=== PATIENT | male | born 1970 | race Caucasian/White ===

== ENCOUNTER 2016-06-20 12:48 | Inpatient (IN) | payer OTHER ==
[2016-06-20 14:05] VITALS: BMI 23.8
--- NOTE | 2016-06-20 15:58 | HP ---
COWS - Scale Resting Pulse: 1= [place] 81-100 Sweatin=Flushed/Facial Moisture Restless Observation: 3= Extraneous Movement Pupil Size: 2= Moderately Dilated Bone or Joint Aches: 2= Severe Diffuse Aches Runny Nose/ Eye Tearin= Runny Nose/Eyes GI Upset > 30mins: 3= Vomiting/Diarrhea Tremor Observation: 2= Slight Tremor Visible Yawning Observation: 2= >3x During Session Anxiety or Irritability: 2=Irritable/Anxious Goose Flesh Skin: 0=Smooth Skin COWS Score: 21 CIWA Score - CIWA Score Nausea/Vomitin Muscle Tremors: 3 Anxiety: 3 Agitation: 3 Paroxysmal Sweats: 2 Orientation: 0-Oriented Tacttile Disturbances: 2-Mild Itch/Numbness/Burn Auditory Disturbances: 2-Mild Harshness/Frighten Visual Disturbances: 2-Mild Sensitivity Headache: 2-Mild CIWA-Ar Total Score: 22 Admission ROS BHS - HPI Chief Complaint: i need help to stop using heroin and alcohol Allergies/Adverse Reactions: Allergies Allergy/AdvReac Type Severity Reaction Status Date / Time No Known Allergies Allergy Verified 06/20/16 14:20 History of Present Illness: this 45 years old male seeking help to stop using heroin,alcoho last detox 6 years ago at [facility] asthma anxiety,depression,adhd longest period sobriety 2 years Exam Limitations: No Limitations - Ebola screening Have you been sick,other than usual withdrawal symptoms: No - Review of Systems Constitutional: Chills, Diaphoresis, Loss of Appetite, Malaise, Night Sweats, Changes in sleep, Weakness EENT: reports: Tearing, Nose Congestion Respiratory: reports: No Symptoms reported Cardiac: reports: Palpitations GI: reports: Diarrhea, Nausea, Vomiting, Abdominal cramping : reports: No Symptoms Reported Musculoskeletal: reports: Back Pain, Joint Pain, Muscle Pain, Joint Stiffness Integumentary: reports: Dryness Neuro: reports: Headache, Tremors Endocrine: reports: No Symptoms Reported Hematology: reports: No Symptoms Reported Psychiatric: reports: No Sypmtoms Reported, Judgement Intact, Mood/Affect Appropiate, Orientated x3, Anxious (adhd), Depressed Patient History - Patient Medical History Hx Anemia: No Hx Asthma: Yes (on albuterol inhaler) Hx Chronic Obstructive Pulmonary Disease (COPD): No Hx Cancer: No Hx Cardiac Disorders: Yes (old mi at age of [age] years old admitted to [facility] ) Hx Congestive Heart Failure: No Hx Hypertension: No Hx Hypercholesterolemia: No Hx Pacemaker: No HX Cerebrovascular Accident: No Hx Seizures: No Hx Diabetes: No Hx Gastrointestinal Disorders: No Hx Genitourinary Disorders: No Hx Sexually Transmitted Disorders: No Hx Renal Disease (ESRD): No Hx Thyroid Disease: No Hx Human Immunodeficiency Virus (HIV): No (NEGATIVE last 2014) Hx Hepatitis C: No Hx Depression: Yes (anxiety) Hx Suicide Attempt: No Hx Bipolar Disorder: No Hx Schizophrenia: No Other Medical History: adhd,no suicidal,no homicidal - Patient Surgical History Past Surgical History: No - PPD History Previous Implant?: Yes Documented Results: Negative w/o proof Implanted On Prior R Admission?: Yes Date: 10/27/14 PPD to be Administered?: Yes - Smoking Cessation Smoking history: Current every day smoker Have you smoked in the past 12 months: Yes Aproximately how many cigarettes per day: 20 Hx Chewing Tobacco Use: No Initiated information on smoking cessation: Yes 'Breaking Loose' booklet given: 06/20/16 - Substance & Tx. History Hx Alcohol Use: Yes Hx Substance Use: Yes Substance Use Type: Heroin, Tranquilizers Hx Substance Use Treatment: Yes (pcp [facility]) - Substances Abused Alcohol Route: Oral Frequency: Daily Amount used: beer(4-10 cans-24 oz) Age of first use: 10 Date of Last Use: 06/20/16 Heroin Route: Inhalation Frequency: Daily Amount used: 3-5 bags Age of first use: 45 Date of Last Use: 06/18/16 PCP Route: Smoking Frequency: Daily Amount used: 2 BAGS Age of first use: 10 Date of Last Use: 06/18/16 Marijuana/Hashish Route: Inhalation Frequency: Daily Amount used: $40 Age of first use: 9 Date of Last Use: 06/18/16 Family Disease History - Family Disease History Family Disease History: Other: Father (alcohol,), Mother (dsa,depression ) Admission Physical Exam BHS - Vital Signs Vital Signs: Vital Signs - 24 hr 06/20/16 14:01 Temperature 96.8 F L Pulse Rate 96 H Respiratory 18 Rate Blood Pressure 118/80 - Physical General Appearance: Yes: Moderate Distress, Tremorous, Irritable, Sweating, Anxious HEENTM: Yes: Hearing grossly Normal, Normal ENT Inspection, ROVERTO, Pharynx Normal Respiratory: Yes: Lungs Clear, Normal Breath Sounds, No Respiratory Distress Neck: Yes: Within Normal Limits Breast: Yes: Within Normal Limits Cardiology: Yes: Within Normal Limits, Regular Rhythm, Regular Rate, S1, S2 Abdominal: Yes: Within Normal Limits, Normal Bowel Sounds, Non Tender, Flat, Soft Genitourinary: Yes: Within Normal Limits Back: Yes: Normal Inspection, Decreased Range of Motion, Muscle Spasm Musculoskeletal: Yes: full range of Motion, Back pain, Joint Stiffness, Muscle Pain Extremities: Yes: Within Normal Limits, Normal Range of Motion, Tremors 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, Fully Oriented, Alert, Motor Strength 5/5 Integumentary: Yes: Dry Lymphatic: Yes: Within Normal Limits - Diagnostic (1) Opioid dependence with withdrawal Current Visit: Yes Status: Acute (2) Alcohol dependence with uncomplicated withdrawal Current Visit: Yes Status: Acute (3) Anxiety and depression Current Visit: Yes Status: Acute (4) Insomnia Current Visit: Yes Status: Acute (5) Weight loss Current Visit: Yes Status: Acute Cleared for Admission [facility] - Detox or Rehab [facility] Level of Care: Medically Managed Detox Regimen/Protocol: Methadone/Librium [facility] Breath Alcohol Content Breath Alcohol Content: 0.065 Urine Drug Screen - Results Drug Screen Negative: No Urine Drug Screen Results: THC-Marijuana, FLY-Cocaine, OPI-Opiates, BZO- Benzodiazepines
[2016-06-20] MEDS ORDERED: chlordiazePOXIDE HCL 25 MG CAPSULE PO ONE (16:12)
[2016-06-20] MEDS ORDERED: MAGNESIUM HYDROX 2400MG/30ML ORAL SUSPENSION 30 ML CUP PO PRN (16:12)
[2016-06-20] MEDS ORDERED: MAG HYDROX/AL HYDROX/SIMETH 30 ML UNIT-DOSE CUP PO PRN (16:12)
[2016-06-20] MEDS ORDERED: MENTHOL/PHENOL 1 EACH UD MM PRN (16:12)
[2016-06-20] MEDS ORDERED: METHADONE HCL 10 MG TABLET (FOR DETOX USE ONLY) PO ONE ×2 (16:12→23:00)
[2016-06-20] MEDS ORDERED: P-EPHED 60MG/TRIPROLIDI 2.5MG TABLET PO PRN (16:12)
[2016-06-20] MEDS ORDERED: LOPERAMIDE HCL 2 MG CAPSULE PO PRN (16:12)
[2016-06-20] MEDS ORDERED: hydrOXYzine PAMOATE 25 MG CAPSULE (FP) PO PRN (16:12)
[2016-06-20] MEDS ORDERED: guaiFENesin/D-METHORPHAN HB 10 ML UNIT-DOSE CUPS PO PRN (16:12)
[2016-06-20] MEDS ORDERED: chlordiazePOXIDE HCL 25 MG CAPSULE PO PRN (16:12)
[2016-06-20] MEDS ORDERED: ACETAMINOPHEN 325 MG TABLET (FP) PO PRN (16:12)
[2016-06-20] MEDS ORDERED: MAGNESIUM CITRATE 300 ML BOTTLE PO PRN (16:12)
[2016-06-20] MEDS: NICOTINE 21 MG/24 HOURS TOPICAL PATCH TD SCH (18:03)
[2016-06-20] MEDS: cloNIDine HCL 0.1 MG TABLET PO SCH (22:12)
[2016-06-20] MEDS: chlordiazePOXIDE HCL 25 MG CAPSULE PO SCH (22:12)
[2016-06-20] MEDS: diphenhydrAMINE HCL 50 MG CAPSULE PO PRN (22:12)
[2016-06-20] MEDS: THIAMINE HCL 100 MG TABLET (FP) PO SCH (22:12)
[2016-06-20] MEDS: CYCLOBENZAPRINE HCL 10 MG TABLET (FP) PO PRN (22:12)
[2016-06-21] MEDS: chlordiazePOXIDE HCL 25 MG CAPSULE PO SCH ×4 (05:25→22:26)
[2016-06-21] MEDS: ALBUTEROL SO4 6.7 GM HFA INHALER IH PRN ×2 (05:30→18:25)
[2016-06-21] MEDS ORDERED: METHADONE HCL 10 MG TABLET (FOR DETOX USE ONLY) PO SCH (10:00)
[2016-06-21 10:01] LABS: MCH 32.5 pg (25.7-33.7); MCHC 32.5 g/dl (32.0-35.9); MEAN CELL VOLUME 99.8 fl (80-96); MEAN PLT VOLUME 8.9 fl (7.5-11.1); PLATELET COUNT 190 K/MM3 (134-434)
[2016-06-21] MEDS: FLUoxetine HCL 10 MG CAPSULE (FP) PO SCH (10:03)
[2016-06-21] MEDS: NICOTINE 21 MG/24 HOURS TOPICAL PATCH TD SCH (10:03)
[2016-06-21] MEDS: cloNIDine HCL 0.1 MG TABLET PO SCH ×2 (10:03→22:27)
[2016-06-21] MEDS: PRENATAL VITAMINS W/ FOLIC ACID TABLET (FP) PO SCH (10:03)
[2016-06-21 10:14] LABS: URINE APPEARANCE CLEAR; URINE BILIRUBIN NEGATIVE (NEGATIVE); URINE BLOOD NEGATIVE (NEGATIVE); URINE COLOR LTYELLOW; URINE GLUCOSE (UA) NEGATIVE (NEGATIVE); URINE KETONE NEGATIVE (NEGATIVE); URINE LEUK ESTERASE NEGATIVE (NEGATIVE); URINE NITRITE NEGATIVE (NEGATIVE); URINE PROTEIN NEGATIVE (NEGATIVE); URINE UROBILINOGEN NEGATIVE E.U./dl (0.2-1.0)
[2016-06-21 10:19] LABS: ALBUMIN 3.4 g/dl (3.4-5.0); ALK PHOS 73 U/L (45-117); ANION GAP 6 (8-16); BILIRUBIN,TOTAL 0.3 mg/dL (0.2-1.0); CALCIUM 8.5 mg/dL (8.5-10.1); CO2 32 mmol/L (21-32); COCKROFT - GAULT 86.71; GLUCOSE,RANDOM 78 mg/dL (74-106); SGOT/AST 75 U/L (15-37); SGPT/ALT 56 U/L (12-78); TOT PROT 6.3 g/dl (6.4-8.2)
--- NOTE | 2016-06-21 10:25 | PN ---
[facility] CIWA - CIWA Score Nausea/Vomitin Muscle Tremors: 2 Anxiety: 2 Agitation: 2 Paroxysmal Sweats: 2 Orientation: 0-Oriented Tacttile Disturbances: 1-Very Mild Itch/Numbness Auditory Disturbances: 0-None Visual Disturbances: 0-None Headache: 0-None Present CIWA-Ar Total Score: 12 BHS COWS - Scale Resting Pulse: 1= [place] 81-100 Sweatin= Chills/Flushing Restless Observation: 1= Difficult to Sit Still Pupil Size: 1= Pupils >than Normal Bone or Joint Aches: 1= Mild Discomfort Runny Nose/ Eye Tearin= Nasal Congestion GI Upset > 30mins: 2= Nausea/Diarrhea Tremor Observation of Outstretched Hands: 1= Tremor Ollie, Not Seen Yawning Observation: 0= None Anxiety or Irritability: 1=Feels Anxious/Irritable Goose Flesh Skin: 0=Smooth Skin COWS Score: 10 BHS Progress Note (SOAP) Subjective: INTERRUPTED SLEEP, SWEATS, DIARRHEA IMPROVING Objective: 06/21/16 10:24 Vital Signs Temperature 98.2 F 06/21/16 09:44 Pulse Rate 83 06/21/16 09:44 Respiratory Rate 18 06/21/16 09:44 Blood Pressure 115/80 06/21/16 09:44 O2 Sat by Pulse Oximetry (%) Laboratory Tests 06/21/16 06/21/16 06/21/16 08:00 08:00 08:40 WBC 6.0 D RBC 4.45 Hgb 14.5 Hct 44.5 MCV 99.8 H MCHC 32.5 RDW 14.0 Plt Count 190 D MPV 8.9 Sodium 139 Potassium 4.2 Chloride 101 Carbon Dioxide 32 Anion Gap 6 L BUN 9 Creatinine 1.0 D Creat Clearance w eGFR > 60 Random Glucose 78 Calcium 8.5 Total Bilirubin 0.3 AST 75 H D ALT 56 D Alkaline Phosphatase 73 D Total Protein 6.3 L Albumin 3.4 Urine Color Ltyellow Urine Appearance Clear Urine pH 6.0 Urine Protein Negative Urine Glucose (UA) Negative Urine Ketones Negative Urine Blood Negative Urine Nitrite Negative Urine Bilirubin Negative Urine Urobilinogen Negative Ur Leukocyte Esterase Negative PT AOX3 IN NAD AMBULATING Assessment: 06/21/16 10:25 WITHDRAWAL SX'S Plan: CONT. DETOX INCREASE FLUIDS IMODIUM PRN
--- NOTE | 2016-06-21 12:02 | CONSULT ---
[facility] Psychiatric Consult - Data Date of interview: 06/21/16 Admission source: [facility] Identifying data: This is 45 years old male with no psychiatric hospitalization history intoxicated with Alcohol, Cocaine, mNiv=cotine and PCP Substance Abuse History: - Smoking Cessation. Smoking history: Current every day smoker. Have you smoked in the past 12 months: Yes. Aproximately how many cigarettes per day: 20. Hx Chewing Tobacco Use: No. Initiated information on smoking cessation: Yes. 'Breaking Loose' booklet given: 06/20/16. - Substance & Tx. History. Hx Alcohol Use: Yes. Hx Substance Use: Yes. Substance Use Type : Heroin, Tranquilizers. Hx Substance Use Treatment: Yes ([facility]p [facility] - Substances Abused. Alcohol. Route: Oral. Frequency: Daily. Amount used: beer(4-10 cans-24 oz). Age of first use: 10. Date of Last Use: 06/20/16. Heroin. Route: Inhalation. Frequency: Daily. Amount used: 3-5 bags. Age of first use: 45. Date of Last Use: 06/18/16. PCP. Route: Smoking. Frequency : Daily. Amount used: 2 BAGS. Age of first use: 10. Date of Last Use: . Marijuana/Hashish. Route: Inhalation. Frequency: Daily. Amount used: $40. Age of first use: 9. Date of Last Use: 06/18/16 Medical History: Weight loss history, Asthma, Cardiomegaly history Psychiatric History: Patoent reprots no msdications taking prior to admission, reports history of depression, anxiety and ADHD, reprots depressed mood amd asking for medications for depression Physical/Sexual Abuse/Trauma History: Denies Additional Comment: Prozac 10mg poqd Mental Status Exam - Mental Status Exam Alert and Oriented to: Person Cognitive Function: Fair Patient Appearance: Unkempt Mood: Sad Affect: Flat Patient Behavior: Sedated Speech Pattern: Delayed Voice Loudness: Mildly Soft/Quiet Thought Process: Circumstantial Thought Disorder: Being Controlled Hallucinations: Denies Suicidal Ideation: Denies Homicidal Ideation: Denies Insight/Judgement: Fair Sleep: Difficulty falling asleep Appetite: Weight loss Muscle strength/Tone: Mild Hypotonicity Gait/Station: Shuffling Additional Comments: Prozac 10mg poqd Psychiatric Findings - Problem List ([place] 1, 2,3) (1) Alcohol dependence with uncomplicated withdrawal Current Visit: Yes Status: Acute (2) Opioid dependence with withdrawal Current Visit: Yes Status: Acute (3) ADHD (attention deficit hyperactivity disorder) Current Visit: No Status: Chronic (4) Alcohol dependence Current Visit: No Status: Chronic (5) Alcohol-induced anxiety disorder Current Visit: No Status: Chronic (6) Anxiety disorder Current Visit: No Status: Chronic (7) Nicotine dependence Current Visit: No Status: Chronic (8) PCP dependence Current Visit: No Status: Chronic (9) Drug-induced mood disorder Current Visit: Yes Status: Acute - Initial Treatment Plan Initial Treatment Plan: Prozac 10mg poqd
--- NOTE | 2016-06-21 13:02 | EKG ---
Test Reason : Blood Pressure : / mmHG Vent. Rate : 086 BPM Atrial Rate : 086 BPM P-R Int : 122 ms QRS Dur : 092 ms QT Int : 376 ms P-R-T Axes : 063 045 045 degrees QTc Int : 449 ms NORMAL SINUS RHYTHM SEPTAL INFARCT , AGE UNDETERMINED ABNORMAL ECG NO PREVIOUS ECGS AVAILABLE Confirmed by MINAL PENA, MILVIA ([id number]) on 06/21/2016 1:02:27 PM Referred By: Philipp Dennis Confirmed By:MILVIA FONTAINE MD
[2016-06-21] MEDS: IBUPROFEN 400 MG TABLET (FP) PO PRN (17:54)
[2016-06-21] MEDS: diphenhydrAMINE HCL 50 MG CAPSULE PO PRN (22:26)
[2016-06-21] MEDS: THIAMINE HCL 100 MG TABLET (FP) PO SCH (22:26)
[2016-06-22] MEDS: chlordiazePOXIDE HCL 25 MG CAPSULE PO SCH ×3 (05:24→17:40)
[2016-06-22] MEDS: IBUPROFEN 400 MG TABLET (FP) PO PRN (05:26)
[2016-06-22] MEDS: PRENATAL VITAMINS W/ FOLIC ACID TABLET (FP) PO SCH (10:06)
[2016-06-22] MEDS: FLUoxetine HCL 10 MG CAPSULE (FP) PO SCH (10:06)
[2016-06-22] MEDS: METHADONE HCL 5 MG TABLET (FOR DETOX USE ONLY) PO SCH (10:06)
[2016-06-22] MEDS: CYCLOBENZAPRINE HCL 10 MG TABLET (FP) PO PRN ×2 (10:06→22:15)
[2016-06-22] MEDS: cloNIDine HCL 0.1 MG TABLET PO SCH ×2 (10:06→22:15)
[2016-06-22] MEDS: NICOTINE 21 MG/24 HOURS TOPICAL PATCH TD SCH (10:07)
--- NOTE | 2016-06-22 10:14 | PN ---
[facility] CIWA - CIWA Score Nausea/Vomitin-No Nausea/No Vomiting Muscle Tremors: 3 Anxiety: 3 Agitation: 3 Paroxysmal Sweats: 3 Orientation: 0-Oriented Tacttile Disturbances: 0-None Auditory Disturbances: 0-None Visual Disturbances: 0-None Headache: 0-None Present CIWA-Ar Total Score: 12 BHS COWS - Scale Resting Pulse: 1= [place] 81-100 Sweatin=Flushed/Facial Moisture Restless Observation: 1= Difficult to Sit Still Pupil Size: 0= Normal to Room Light Bone or Joint Aches: 2= Severe Diffuse Aches Runny Nose/ Eye Tearin= None GI Upset > 30mins: 0= None Tremor Observation of Outstretched Hands: 2= Slight Tremor Visible Yawning Observation: 1= 1-2x During Session Anxiety or Irritability: 2=Irritable/Anxious Goose Flesh Skin: 0=Smooth Skin COWS Score: 11 S Progress Note (SOAP) Subjective: sweats anxiety interrupted sleep headache Objective: 06/22/16 10:13 Vital Signs Temperature 98.1 F 06/22/16 09:49 Pulse Rate 81 06/22/16 09:49 Respiratory Rate 16 06/22/16 09:49 Blood Pressure 123/79 06/22/16 09:49 O2 Sat by Pulse Oximetry (%) Laboratory Tests 06/21/16 06/21/16 06/21/16 08:00 08:00 08:00 WBC 6.0 D RBC 4.45 Hgb 14.5 Hct 44.5 MCV 99.8 H MCHC 32.5 RDW 14.0 Plt Count 190 D MPV 8.9 Sodium 139 Potassium 4.2 Chloride 101 Carbon Dioxide 32 Anion Gap 6 L BUN 9 Creatinine 1.0 D Creat Clearance w eGFR > 60 Random Glucose 78 Calcium 8.5 Total Bilirubin 0.3 AST 75 H D ALT 56 D Alkaline Phosphatase 73 D Total Protein 6.3 L Albumin 3.4 Urine Color Urine Appearance Urine pH Ur Specific [place] Urine Protein Urine Glucose (UA) Urine Ketones Urine Blood Urine Nitrite Urine Bilirubin Urine Urobilinogen Ur Leukocyte Esterase RPR Titer Nonreactive 06/21/16 08:40 WBC RBC Hgb Hct MCV MCHC RDW Plt Count MPV Sodium Potassium Chloride Carbon Dioxide Anion Gap BUN Creatinine Creat Clearance w eGFR Random Glucose Calcium Total Bilirubin AST ALT Alkaline Phosphatase Total Protein Albumin Urine Color Ltyellow Urine Appearance Clear Urine pH 6.0 Ur Specific [place] 1.010 Urine Protein Negative Urine Glucose (UA) Negative Urine Ketones Negative Urine Blood Negative Urine Nitrite Negative Urine Bilirubin Negative Urine Urobilinogen Negative Ur Leukocyte Esterase Negative RPR Titer awake/alert ambulating no acute distress Assessment: 06/22/16 10:13 withdrawal sx Plan: continue detox increase fluids
[2016-06-22] MEDS: ALBUTEROL SO4 6.7 GM HFA INHALER IH PRN (12:45)
[2016-06-22] MEDS: chlordiazePOXIDE 5 MG CAPSULE PO SCH (22:15)
[2016-06-22] MEDS: THIAMINE HCL 100 MG TABLET (FP) PO SCH (22:15)
[2016-06-23] MEDS: chlordiazePOXIDE 5 MG CAPSULE PO SCH ×3 (05:43→17:20)
[2016-06-23] MEDS: PRENATAL VITAMINS W/ FOLIC ACID TABLET (FP) PO SCH (10:08)
[2016-06-23] MEDS: METHADONE HCL 5 MG TABLET (FOR DETOX USE ONLY) PO SCH (10:09)
[2016-06-23] MEDS: NICOTINE 21 MG/24 HOURS TOPICAL PATCH TD SCH (10:09)
[2016-06-23] MEDS: cloNIDine HCL 0.1 MG TABLET PO SCH ×2 (10:09→22:11)
[2016-06-23] MEDS: CYCLOBENZAPRINE HCL 10 MG TABLET (FP) PO PRN ×2 (10:09→22:11)
[2016-06-23] MEDS: FLUoxetine HCL 10 MG CAPSULE (FP) PO SCH (10:09)
--- NOTE | 2016-06-23 11:41 | PN ---
BHS Progress Note (SOAP) Subjective: interrupted sleep, sweats Objective: 06/23/16 11:39 Vital Signs Temperature 98.6 F 06/23/16 09:47 Pulse Rate 84 06/23/16 09:47 Respiratory Rate 18 06/23/16 09:47 Blood Pressure 114/72 06/23/16 09:47 O2 Sat by Pulse Oximetry (%) Laboratory Tests 06/21/16 06/21/16 06/21/16 08:00 08:00 08:00 WBC 6.0 D RBC 4.45 Hgb 14.5 Hct 44.5 MCV 99.8 H MCHC 32.5 RDW 14.0 Plt Count 190 D MPV 8.9 Sodium 139 Potassium 4.2 Chloride 101 Carbon Dioxide 32 Anion Gap 6 L BUN 9 Creatinine 1.0 D Creat Clearance w eGFR > 60 Random Glucose 78 Calcium 8.5 Total Bilirubin 0.3 AST 75 H D ALT 56 D Alkaline Phosphatase 73 D Total Protein 6.3 L Albumin 3.4 Urine Color Urine Appearance Urine pH Ur Specific [place] Urine Protein Urine Glucose (UA) Urine Ketones Urine Blood Urine Nitrite Urine Bilirubin Urine Urobilinogen Ur Leukocyte Esterase RPR Titer Nonreactive 06/21/16 08:40 WBC RBC Hgb Hct MCV MCHC RDW Plt Count MPV Sodium Potassium Chloride Carbon Dioxide Anion Gap BUN Creatinine Creat Clearance w eGFR Random Glucose Calcium Total Bilirubin AST ALT Alkaline Phosphatase Total Protein Albumin Urine Color Ltyellow Urine Appearance Clear Urine pH 6.0 Ur Specific [place] 1.010 Urine Protein Negative Urine Glucose (UA) Negative Urine Ketones Negative Urine Blood Negative Urine Nitrite Negative Urine Bilirubin Negative Urine Urobilinogen Negative Ur Leukocyte Esterase Negative RPR Titer pt aox3 in nad ambulating Assessment: 06/23/16 11:40 withdrawal sx's Plan: cont. detox increase fluids s
[2016-06-23] MEDS: chlordiazePOXIDE HCL 10 MG CAPSULE PO SCH (22:11)
[2016-06-23] MEDS: THIAMINE HCL 100 MG TABLET (FP) PO SCH (22:11)
[2016-06-23] MEDS: ALBUTEROL SO4 6.7 GM HFA INHALER IH PRN (22:11)
[2016-06-24] MEDS: chlordiazePOXIDE HCL 10 MG CAPSULE PO SCH ×2 (05:47→10:10)
[2016-06-24] MEDS ORDERED: METHADONE HCL 10 MG TABLET (FOR DETOX USE ONLY) PO SCH (10:00)
--- NOTE | 2016-06-24 10:08 | PN ---
BHS Progress Note (SOAP) Subjective: sweats Objective: 06/24/16 10:07 Vital Signs Temperature 99.7 F H 06/24/16 09:31 Pulse Rate 78 06/24/16 09:31 Respiratory Rate 18 06/24/16 09:31 Blood Pressure 128/89 06/24/16 09:31 O2 Sat by Pulse Oximetry (%) awake/alert ambulating no acute distress Assessment: 06/24/16 10:07 withdrawal sx Plan: continue detox increase fluids d/c in am
[2016-06-24] MEDS: CYCLOBENZAPRINE HCL 10 MG TABLET (FP) PO PRN ×2 (10:10→22:47)
[2016-06-24] MEDS: PRENATAL VITAMINS W/ FOLIC ACID TABLET (FP) PO SCH (10:10)
[2016-06-24] MEDS: cloNIDine HCL 0.1 MG TABLET PO SCH ×2 (10:10→22:47)
[2016-06-24] MEDS: FLUoxetine HCL 10 MG CAPSULE (FP) PO SCH (10:10)
[2016-06-24] MEDS: NICOTINE 21 MG/24 HOURS TOPICAL PATCH TD SCH (10:11)
[2016-06-24] MEDS: diphenhydrAMINE HCL 50 MG CAPSULE PO PRN (22:47)
[2016-06-24] MEDS: THIAMINE HCL 100 MG TABLET (FP) PO SCH (22:47)
[2016-06-25] MEDS: chlordiazePOXIDE HCL 10 MG CAPSULE PO SCH (00:06)
[2016-06-25] MEDS ORDERED: METHADONE HCL 5 MG TABLET (FOR DETOX USE ONLY) PO SCH (06:00)
--- NOTE | 2016-06-25 08:51 | DS ---
[facility] Detox Discharge Summary Admission Date: 06/20/16 Discharge Date: 06/25/16 - History Present History: Alcohol Dependence, Opioid Dependence, Pcp Dependence - Physical Exam Results Vital Signs: Vital Signs Temperature 97.9 F 06/25/16 06:00 Pulse Rate 74 06/25/16 06:00 Respiratory Rate 18 06/25/16 06:00 Blood Pressure 138/82 06/25/16 06:00 O2 Sat by Pulse Oximetry (%) - Treatment Hospital Course: Detox Protocol Followed, Detoxed Safely, Responded well, Discharged Condition Good, Rehab Referral Accepted - Medication Discharge Medications: Ambulatory Orders Albuterol Sulfate Inhaler - [Ventolin Hfa Inhaler -] 1 - 2 inh PO Q4H PRN Fluoxetine HCl [Prozac -] 10 mg PO DAILY #30 tablet 06/21/16 - Diagnosis (1) Alcohol dependence with uncomplicated withdrawal Current Visit: Yes Status: Chronic (2) Anxiety and depression Current Visit: Yes Status: Acute (3) Drug-induced mood disorder Current Visit: Yes Status: Acute (4) Insomnia Current Visit: Yes Status: Acute (5) Opioid dependence with withdrawal Current Visit: Yes Status: Chronic (6) Weight loss Current Visit: Yes Status: Acute (7) Abrasion of face and extremities Current Visit: No Status: Acute (8) ADHD (attention deficit hyperactivity disorder) Current Visit: No Status: Chronic (9) Alcohol-induced anxiety disorder Current Visit: No Status: Chronic (10) Anxiety disorder Current Visit: No Status: Chronic (11) Asthma Current Visit: No Status: Chronic (12) Depression Current Visit: No Status: Chronic (13) Hx of cardiomegaly Current Visit: No Status: Chronic (14) Nicotine dependence Current Visit: Yes Status: Chronic Qualifiers: Nicotine product type: cigarettes Substance use status: uncomplicated Qualified Code(s): F17.210 - Nicotine dependence, cigarettes, uncomplicated (15) PCP dependence Current Visit: Yes Status: Chronic - AMA Did Patient Leave Against Medical Advice: No
[2016-06-25] MEDS: PRENATAL VITAMINS W/ FOLIC ACID TABLET (FP) PO SCH (09:22)
[2016-06-25] MEDS: FLUoxetine HCL 10 MG CAPSULE (FP) PO SCH (09:24)
[2016-06-25 10:30] VITALS: BP 126/86; PULSE 85; TEMP 98.1
== END 2016-06-25 09:35 | disposition home or self-care (01) | DRG 773 ==
LOC: YASAS 12:48 → Y6N 15:03
PROVIDERS: ADMIT Internal Medicine Addiction Medicine; ATTEND Internal Medicine Addiction Medicine
PROC: HZ2ZZZZ Detoxification Services for Substance Abuse Treatment (ICD-10-PCS; principal; 2016-06-25)
DX: F11.23 Opioid dependence with withdrawal (principal); F10.230 Alcohol dependence with withdrawal, uncomplicated; F16.20 Hallucinogen dependence, uncomplicated; F17.210 Nicotine dependence, cigarettes, uncomplicated; F10.24 Alcohol dependence with alcohol-induced mood disorder; F41.8 Other specified anxiety disorders; F90.9 Attention-deficit hyperactivity disorder, unspecified type; G47.00 Insomnia, unspecified; J45.20 Mild intermittent asthma, uncomplicated; I25.2 Old myocardial infarction
CPT/HCPCS: 36415; 80053; 81003; 85027; 86593; 93005; 93010